=== PATIENT | male | born 1965 | race Caucasian/White ===

== ENCOUNTER → 2021-01-19 | Outpatient (CLI) | payer OTHER ==
--- NOTE | 2021-01-19 13:06 | P.STRESS ---
- Stress Test Note Stress Test Results/Findings: Exam Performed: stress echo exercise Exam Date: 01/19/21 Reason for Exam: FHX OF HEART DISEASE Height: 5 ft 10 in Weight: 86 kg Protocol: STRESS ECHO EXERCISE Stage: 4 Duration of Exercise: 9:18 Resting Heart Rate: 69 Resting Blood Pressure: 116/77 Maximum Achieved Heart Rate: 157 Maximum Achieved Blood Pressure: 159/91 85% PMHR: 139 100% PMHR: 164 METS: 10.5 Technologist Comment: Stress Test Results/Findings: Baseline heart rate 69 beats a minute, Baseline blood pressure 116/77 mmHg Baseline ECG shows sinus rhythm with normal ST segments Patient exercised on a [employer] protocol for 9 minutes 18 seconds, achieving a peak heart rate of 157 beats a minute PVCs were noted peak exercise and in early recovery No nonsustained ventricular tachycardia There was no ECG evidence for ischemia Baseline 2-D echo images showed normal LV size and systolic function without segmental wall motion abnormalities At peak exercise there was excellent augmentation of overall LV contractility without development of any wall motion normalities @Recovery regional global LV systolic function remained normal Impression Good exercise capacity No ECG or echocardiographic evidence for ischemia PVCs at peak exercise
== END | disposition home or self-care (01) ==
LOC: RADNMMAIN 10:25
PROVIDERS: ATTEND Family Medicine
DX: Z82.49 Family history of ischemic heart disease and other diseases of the circulatory system (principal)
CPT/HCPCS: 93351

== ENCOUNTER 2021-01-31 08:51 | Day surgery (SDC) | payer OTHER ==
[2021-01-26 13:27] VITALS: BMI 27.2
[~2021-01-31 08:51] MED LIST: LIDOCAINE 1% (10MG/ML) FOR IV START INTRADERMA PRN
[2021-01-31 09:22] VITALS: TEMP 97.7
[2021-01-31] MEDS: LACTATED RINGERS 1,000 ML IV SCH ×2 (09:22→10:03)
[2021-01-31] MEDS ORDERED: PROPOFOL 10 MG/ML 20 ML VIAL IV ONE (10:04)
[2021-01-31] MEDS ORDERED: SODIUM CHLORIDE 0.9% 500 ML 500 ML IV ONE (10:16)
--- NOTE | 2021-01-31 10:19 | P.PCN ---
Date of Procedure: 01/31/21 Procedure(s) Performed: BRIEF HISTORY: Patient is a 55-year-old pleasant white male scheduled for an elective colonoscopy as a part of evaluation of prior history of colon polyps. Last coloscopy was 5 years ago. PROCEDURE PERFORMED: Colonoscopy. PREOPERATIVE DIAGNOSIS: Of history of colon polyps. IV sedation per Anesthesia. PROCEDURE: After informed consent was obtained, the patient, was brought into the endoscopy unit. IV sedation was administered by Anesthesia under continuous monitoring. Digital rectal examination was normal. Initially the Olympus CF-160 flexible video colonoscope was then inserted in the rectum, gradually advanced into the cecum without any difficulty. Careful examination was performed as the scope was gradually being withdrawn. Ileocecal valve and the appendiceal orifice were visualized and appeared normal. Prep was excellent. Mucosa of the cecum, ascending colon, transverse colon, descending colon, sigmoid colon, and rectum appeared normal. Retroflexion was performed in the rectum and no lesions were seen. The patient tolerated the procedure well. IMPRESSION: Normal-appearing colon from rectum to cecum with no evidence of colorectal neoplasia. RECOMMENDATIONS: Findings of this examination were discussed with the patient as well as his family. He was advised to have a repeat screening colonoscopy in 10 years.
[2021-01-31 11:15] VITALS: BP 116/79; PULSE 77; RESP 20
== END 2021-01-31 11:30 ==
LOC: ORWHC2ENDO 08:51
PROVIDERS: ATTEND Internal Medicine Gastroenterology
DX: Z12.11 Encounter for screening for malignant neoplasm of colon (principal); Z86.010 Personal history of colon polyps; Z87.891 Personal history of nicotine dependence; Z98.890 Other specified postprocedural states; Z97.2 Presence of dental prosthetic device (complete) (partial)
CPT/HCPCS: J2704; G0105; 45378

== ENCOUNTER 2022-09-25 15:26 | Inpatient (IN) | payer BC ==
[2022-09-25] MEDS ORDERED: SODIUM CHLORIDE 0.9% 500 ML 500 ML IV STA (15:46)
[2022-09-25] MEDS ORDERED: DILTIAZEM DRIP BOLUS FROM BAG 1 MG SOLN IV ONE (15:47)
--- NOTE | 2022-09-25 15:49 | ED ---
General Adult HPI - General Chief complaint: Chest Pain Stated complaint: chest pains/sob Time Seen by Provider: 09/25/22 15:40 Source: patient, RN notes reviewed, old records reviewed Mode of arrival: ambulatory Limitations: no limitations - History of Present Illness Initial comments: This is a 57-year-old male who presents emergency Department complaining that he felt short of breath and more fatigued worked also just didn't feel right so decided come the emergency department. Patient states he has no history of any diabetes or high blood pressure high cholesterol. Patient states she used to be a smoker but quit 12 years ago. Patient denies any chest pain today or palpitations. Patient denies any drug use. Patient denies any history of his thyroid. Patient denies headache patient denies numbness weakness. Patient denies lightheadedness or dizziness. Patient denies any abdominal pain patient denies nausea vomiting diarrhea. Patient denies any recent fever chills or cough per patient denies any similar episodes in the past per patient denies any swelling to the legs or calf tenderness. - Related Data Home Medications Medication Instructions Recorded Confirmed Fish Oil(Dose Unknown) 1 cap PO DAILY 01/26/21 09/25/22 Multivitamins, Thera [Multivitamin 1 tab PO DAILY 01/26/21 09/25/22 (formulary)] Vitamin C(Dose Unknown) 1 tab PO DAILY 01/26/21 09/25/22 Vitamin D(Dose Unknown) 1 tab PO DAILY 01/26/21 09/25/22 Allergies Allergy/AdvReac Type Severity Reaction Status Date / Time No Known Allergies Allergy Verified 09/25/22 16:22 Review of Systems ROS Statement: Those systems with pertinent positive or pertinent negative responses have been documented in the HPI. ROS Other: All systems not noted in ROS Statement are negative. Past Medical History Past Medical History: No Reported History History of Any Multi-Drug Resistant Organisms: None Reported Past Surgical History: Orthopedic Surgery Additional Past Surgical History / Comment(s): NASAL SURGERY, RIGHT HAND -TENDON Past Anesthesia/Blood Transfusion Reactions: No Reported Reaction Past Psychological History: No Psychological Hx Reported Smoking Status: Former smoker Past Alcohol Use History: Occasional Past Drug Use History: None Reported - Past Family History Mother Family Medical History: Cancer Additional Family Medical History / Comment(s): BREAST CANCER General Exam - General Exam Comments Initial Comments: GENERAL: Patient is well-developed and well-nourished. Patient is nontoxic and well- hydrated and is in mild distress. ENT: Neck is soft and supple. No significant lymphadenopathy is noted. Oropharynx is clear. Moist mucous membranes. Neck has full range of motion without eliciting any pain. EYES: The sclera were anicteric and conjunctiva were pink and moist. Extraocular movements were intact and pupils were equal round and reactive to light. Eyelids were unremarkable. PULMONARY: Unlabored respirations. Good breath sounds bilaterally. No audible rales rhonchi or wheezing was noted. CARDIOVASCULAR: Patient is tachycardic at about 170 beats a minute ABDOMEN: Soft and nontender with normal bowel sounds. SKIN: Skin is clear with no lesions or rashes and otherwise unremarkable. NEUROLOGIC: Patient is alert and oriented x3. Cranial nerves II through XII are grossly intact. Motor and sensory are also intact. Normal speech, volume and content. Symmetrical smile. MUSCULOSKELETAL: Normal extremities with adequate strength and full range of motion. No lower extremity swelling or edema. No calf tenderness. LYMPHATICS: No significant lymphadenopathy is noted PSYCHIATRIC: Normal psychiatric evaluation. Limitations: no limitations Course Vital Signs 09/25/22 15:29 Temperature 98.5 F Pulse Rate 150 H Respiratory 20 Rate Blood Pressure 105/67 O2 Sat by Pulse 95 Oximetry Medical Decision Making - Medical Decision Making EKG was interpreted by me. EKG shows atrial fibrillation with rapid ventricular response at 151 bpm QRS is 85 Q-T intervals 259 QTC is 345. Patient's EKG showselevation or depression. Chest x-ray was interpreted by me. Chest x-ray showed no infiltrate showed no pleural effusion. I started the patient Cardizem after giving the patient a Cardizem bolus and also started patient on heparin. Patient was not having any chest pain anytime. Patient was not short of breath sounds and was lying still in bed. I spoke with Dr. Pool he accepted the patient admitted the patient wrote admitting orders I consult cardiology I continued heparin and Cardizem on the floor. - Lab Data Result diagrams: 09/25/22 15:52 09/25/22 15:52 Lab Results 09/25/22 09/25/22 09/25/22 Range/Units 15:52 15:52 15:52 WBC 10.1 (3.8-10.6) k/uL RBC 5.23 (4.30-5.90) m/uL Hgb 15.8 (13.0-17.5) gm/dL Hct 44.9 (39.0-53.0) % MCV 86.0 (80.0-100.0) fL MCH 30.1 (25.0-35.0) pg MCHC 35.1 (31.0-37.0) g/dL RDW 12.4 (11.5-15.5) % Plt Count 242 (150-450) k/uL MPV 7.1 Neutrophils % 73 % Lymphocytes % 18 % Monocytes % 7 % Eosinophils % 1 % Basophils % 0 % Neutrophils # 7.3 (1.3-7.7) k/uL Lymphocytes # 1.8 (1.0-4.8) k/uL Monocytes # 0.7 (0-1.0) k/uL Eosinophils # 0.1 (0-0.7) k/uL Basophils # 0.0 (0-0.2) k/uL PT 10.2 (9.0-12.0) sec INR 1.0 (<1.2) APTT 25.8 (22.0-30.0) sec Sodium 140 (137-145) mmol/L Potassium 4.4 (3.5-5.1) mmol/L Chloride 106 (98-107) mmol/L Carbon Dioxide 26 (22-30) mmol/L Anion Gap 8 mmol/L BUN 15 (9-20) mg/dL Creatinine 0.89 (0.66-1.25) mg/dL Est GFR (CKD-EPI)AfAm >90 (>60 ml/min/1.73 sqM) Est GFR (CKD-EPI)NonAf >90 (>60 ml/min/1.73 sqM) Glucose 99 (74-99) mg/dL Calcium 9.3 (8.4-10.2) mg/dL Magnesium 2.1 (1.6-2.3) mg/dL Total Bilirubin 0.6 (0.2-1.3) mg/dL AST 29 (17-59) U/L ALT 28 (4-49) U/L Alkaline Phosphatase 102 (38-126) U/L Troponin I (0.000-0.034) ng/mL Total Protein 7.3 (6.3-8.2) g/dL Albumin 4.5 (3.5-5.0) g/dL 09/25/22 Range/Units 15:52 WBC (3.8-10.6) k/uL RBC (4.30-5.90) m/uL Hgb (13.0-17.5) gm/dL Hct (39.0-53.0) % MCV (80.0-100.0) fL MCH (25.0-35.0) pg MCHC (31.0-37.0) g/dL RDW (11.5-15.5) % Plt Count (150-450) k/uL MPV Neutrophils % % Lymphocytes % % Monocytes % % Eosinophils % % Basophils % % Neutrophils # (1.3-7.7) k/uL Lymphocytes # (1.0-4.8) k/uL Monocytes # (0-1.0) k/uL Eosinophils # (0-0.7) k/uL Basophils # (0-0.2) k/uL PT (9.0-12.0) sec INR (<1.2) APTT (22.0-30.0) sec Sodium (137-145) mmol/L Potassium (3.5-5.1) mmol/L Chloride (98-107) mmol/L Carbon Dioxide (22-30) mmol/L Anion Gap mmol/L BUN (9-20) mg/dL Creatinine (0.66-1.25) mg/dL Est GFR (CKD-EPI)AfAm (>60 ml/min/1.73 sqM) Est GFR (CKD-EPI)NonAf (>60 ml/min/1.73 sqM) Glucose (74-99) mg/dL Calcium (8.4-10.2) mg/dL Magnesium (1.6-2.3) mg/dL Total Bilirubin (0.2-1.3) mg/dL AST (17-59) U/L ALT (4-49) U/L Alkaline Phosphatase (38-126) U/L Troponin I <0.012 (0.000-0.034) ng/mL Total Protein (6.3-8.2) g/dL Albumin (3.5-5.0) g/dL Critical Care Time Critical Care Time: Yes Total Critical Care Time: 35 Disposition Clinical Impression: Atrial fibrillation with rapid ventricular response Disposition: ADMITTED IP TO THIS HOSP Referrals: Malu Cruz MD [Primary Care Provider] - 1-2 days Time of Disposition: 16:38
[2022-09-25 16:06] LABS: Basophils % (A) 0 %; Eosinophils # (A) 0.1 k/uL (0-0.7); Eosinophils % (A) 1 %; HCT 44.9 % (39.0-53.0); HGB 15.8 gm/dL (13.0-17.5); Lymphocytes # (A) 1.8 k/uL (1.0-4.8); Lymphocytes % (A) 18 %; MCH 30.1 pg (25.0-35.0); MCHC 35.1 g/dL (31.0-37.0); Mean Platelet Volume 7.1; Monocytes # (A) 0.7 k/uL (0-1.0); Monocytes % (A) 7 %; Neutrophils # (A) 7.3 k/uL (1.3-7.7); Neutrophils % (A) 73 %; Platelet Count 242 k/uL (150-450); RBC 5.23 m/uL (4.30-5.90); RDW 12.4 % (11.5-15.5); WBC 10.1 k/uL (3.8-10.6)
[2022-09-25 16:15] LABS: ALT 28 U/L (4-49); AST 29 U/L (17-59); African American GFR (CKD) >90 (>60 ml/min/1.73 sqM); Albumin 4.5 g/dL (3.5-5.0); Alkaline Phosphatase 102 U/L (38-126); Anion Gap 8 mmol/L; Blood Urea Nitrogen 15 mg/dL (9-20); Calcium 9.3 mg/dL (8.4-10.2); Carbon Dioxide 26 mmol/L (22-30); Chloride 106 mmol/L (98-107); Glucose 99 mg/dL (74-99); Magnesium 2.1 mg/dL (1.6-2.3); Non-African American GFR(CKD) >90 (>60 ml/min/1.73 sqM); Potassium 4.4 mmol/L (3.5-5.1); Sodium 140 mmol/L (137-145); Total Bilirubin 0.6 mg/dL (0.2-1.3); Total Protein 7.3 g/dL (6.3-8.2)
[2022-09-25] MEDS ORDERED: DILTIAZEM 125 MG in SODIUM CHLORIDE 0.9% 100 ML IV SCH (16:15)
--- NOTE | 2022-09-25 16:17 | XR ---
EXAMINATION TYPE: XR chest 2V DATE OF EXAM: 09/25/2022 COMPARISON: NONE HISTORY: Dysrhythmia. TECHNIQUE: Frontal and lateral views of the chest are obtained. FINDINGS: Slightly elevated left hemidiaphragm. There is no focal air space opacity, pleural effusio n, or pneumothorax seen. The cardiac silhouette size is within normal limits. The osseous structur es are intact. Overlying EKG leads. IMPRESSION: No acute cardiopulmonary process.
[2022-09-25 16:19] LABS: Partial Thromboplastin Time 25.8 sec (22.0-30.0); Prothrombin Time 10.2 sec (9.0-12.0)
[2022-09-25] MEDS ORDERED: HEPARIN SODIUM 1,000 UN/ML (10ML VL) IV ONE (16:35)
[2022-09-25] MEDS ORDERED: NITROGLYCERIN SL TABS 0.4 MG TAB SUBLINGUAL PRN (16:40)
[2022-09-25] MEDS ORDERED: HEPARIN SOD,PORK IN 0.45% NACL 25,000 UNIT in 0.45% NACL 1 250ML.BAG IV SCH (16:45)
[2022-09-25 16:47] LABS: Amphetamine Screen,Urine Not Detected (NotDetected); Barbiturate Screen,Urine Not Detected (NotDetected); Benzodiazepines Screen,Urine Not Detected (NotDetected); Cocaine Screen,Urine Not Detected (NotDetected); Methadone Screen, Urine Not Detected (NotDetected); Opiate Screen,Urine Not Detected (NotDetected); Oxycodone Screen, Urine Not Detected (NotDetected); Phencyclidine Screen,Urine Not Detected (NotDetected); Tricyclic Antidepressant,Urine Not Detected (NotDetected); Urn Cannabinoid Scrn Not Detected (NotDetected)
[2022-09-26 07:15] LABS: Basophils % (A) 0 %; Eosinophils # (A) 0.1 k/uL (0-0.7); Eosinophils % (A) 1 %; HCT 45.9 % (39.0-53.0); HGB 15.5 gm/dL (13.0-17.5); Lymphocytes # (A) 1.8 k/uL (1.0-4.8); Lymphocytes % (A) 25 %; MCH 29.8 pg (25.0-35.0); MCHC 33.7 g/dL (31.0-37.0); MCV 88.3 fL (80.0-100.0); Mean Platelet Volume 7.8; Monocytes # (A) 0.5 k/uL (0-1.0); Monocytes % (A) 7 %; Neutrophils # (A) 4.7 k/uL (1.3-7.7); Neutrophils % (A) 65 %; Platelet Count 215 k/uL (150-450); RBC 5.21 m/uL (4.30-5.90); RDW 12.7 % (11.5-15.5); WBC 7.3 k/uL (3.8-10.6)
[2022-09-26 07:31] LABS: ALT 24 U/L (4-49); AST 23 U/L (17-59); African American GFR (CKD) >90 (>60 ml/min/1.73 sqM); Albumin 3.7 g/dL (3.5-5.0); Alkaline Phosphatase 91 U/L (38-126); Anion Gap 3 mmol/L; Blood Urea Nitrogen 13 mg/dL (9-20); Calcium 8.3 mg/dL (8.4-10.2); Carbon Dioxide 28 mmol/L (22-30); Chloride 107 mmol/L (98-107); Glucose 93 mg/dL (74-99); Non-African American GFR(CKD) >90 (>60 ml/min/1.73 sqM); Potassium 4.5 mmol/L (3.5-5.1); Sodium 138 mmol/L (137-145); Total Bilirubin 1.1 mg/dL (0.2-1.3); Total Protein 6.3 g/dL (6.3-8.2)
[2022-09-26] MEDS ORDERED: ASPIRIN 325 MG TAB PO SCH (09:00)
[2022-09-26] MEDS: MULTIVITAMINS, THERA 1 EACH TAB PO SCH (09:58)
[2022-09-26 10:29] LABS: Chol/HDL Ratio 5.42 Ratio; LDL Cholesterol,Calculated 137.7 mg/dL (0.0-131.0)
--- NOTE | 2022-09-26 12:02 | P.CRDCN ---
History of Present Illness Consult date: 09/26/22 Requesting physician: Oj Pool Reason for Consult (text): new onset af w/RVR Chief complaint: palpitations, shortness of breath History of present illness: This is a pleasant 57-year-old gentleman with no past medical history follows regularly with Dr. Cruz. Yany to the hospital after developing some chest tightness, palpitations shortness of breath at work yesterday. He was found to be in atrial fibrillation with rapid ventricular response. Troponins of been negative 3 and TSH was normal. He's been initiated on IV Cardizem and heparin. On admission CBC and CMP were unremarkable. He continues to be in atrial fibrillation. Overall he is a fairly active person and typically has no pains or limitations. Yany nonsmoker and consumes alcohol only about once a week and does not drink excessive caffeine. He's had no orthopnea, PND or edema. Other than the chest tightness he experienced yesterday he has no complaints of chest discomfort. He's had no dizziness, lightheadedness, syncope or near syncope. He's had no nausea vomiting or diarrhea. He's had no issues with bleeding. Denies any reflux or heartburn. Upon examination he is resting comfortably in the emergency department heart rate is a bit better. He remains in atrial fibrillation. Past Medical History Past Medical History: No Reported History History of Any Multi-Drug Resistant Organisms: None Reported Past Surgical History: Orthopedic Surgery Additional Past Surgical History / Comment(s): NASAL SURGERY, RIGHT HAND -TENDON Past Anesthesia/Blood Transfusion Reactions: No Reported Reaction Past Psychological History: No Psychological Hx Reported Smoking Status: Former smoker Past Alcohol Use History: Occasional Additional Past Alcohol Use History / Comment(s): QUIT SMOKING 2010, STARTED SMOKING AT AGE 17 / 1PPD Past Drug Use History: None Reported - Past Family History Mother Family Medical History: Cancer Additional Family Medical History / Comment(s): BREAST CANCER Medications and Allergies Home Medications Medication Instructions Recorded Confirmed Type Fish Oil(Dose Unknown) 1 cap PO DAILY 01/26/21 09/25/22 History Multivitamins, Thera [Multivitamin 1 tab PO DAILY 01/26/21 09/25/22 History (formulary)] Vitamin C(Dose Unknown) 1 tab PO DAILY 01/26/21 09/25/22 History Vitamin D(Dose Unknown) 1 tab PO DAILY 01/26/21 09/25/22 History Allergies Allergy/AdvReac Type Severity Reaction Status Date / Time No Known Allergies Allergy Verified 09/25/22 16:22 Physical Exam Vitals: Vital Signs Temp Pulse Pulse Resp BP BP Pulse Ox 09/26/22 08:05 97.3 F L 126 H 17 94/68 93 L 09/26/22 08:00 126 H 17 09/26/22 04:23 97.9 F 122 H 16 93/63 95 09/26/22 03:32 98.0 F 106 H 18 91/65 97 09/26/22 02:00 120 H 16 09/25/22 23:27 97.8 F 120 H 16 114/78 98 09/25/22 22:03 116 H 18 95/69 94 L 09/25/22 21:28 126 H 16 109/67 94 L 09/25/22 19:18 130 H 16 108/83 09/25/22 19:00 128 H 13 105/71 09/25/22 18:00 129 H 9 L 108/67 09/25/22 15:29 98.5 F 150 H 20 105/67 95 Intake and Output 09/25/22 09/26/22 09/26/22 22:59 06:59 14:59 Intake Total 15 66.647 126.04 Output Total 500 Balance 15 66.647 -373.96 Intake: Intake, IV Titration 15 66.647 126.04 Amount Diltiazem 125 mg In 15 Sodium Chloride 0.9% 100 ml @ 5 MG/HR 5 mls/hr IV .Q24H [facility] Rx#:[id number] Heparin Sod,Pork in 0.45% 66.647 126.04 NaCl 25,000 unit In 0.45 % NaCl 1 250ml.bag @ 11.6 UNITS/KG/HR 9.997 mls/hr IV .Q24H [facility] Rx#: [id number] Output: Urine 500 Other: Weight 86.183 kg PHYSICAL EXAMINATION: This is a 57-year-old male in no apparent distress at the time of my examination. HEENT: Head is atraumatic, normocephalic. Pupils are equal, round. Sclerae anicteric. Conjunctivae are clear. Mucous membranes of the mouth are moist. Neck is supple. There is no elevated jugular venous pressure. No carotid bruit is heard. CHEST EXAMINATION: Clear to auscultation bilaterally. No wheezes rales or rhonchi. Respirations even and nonlabored. HEART EXAMINATION: Heart irregular rate and rhythm, positive S1 and S2. No S3. No S4. No clicks, rubs or murmurs. ABDOMEN: Soft, nontender. Bowel sounds are heard. No organomegaly noted. EXTREMITIES: 2+ peripheral pulses with no evidence of peripheral edema and no calf tenderness noted. NEUROLOGIC EXAMINATION: Patient is awake, alert and oriented x3. Results 09/26/22 06:31 09/26/22 06:31 Cardiac Enzymes 09/25/22 09/25/22 09/25/22 Range/Units 15:52 15:52 17:43 AST 29 (17-59) U/L Troponin I <0.012 <0.012 (0.000-0.034) ng/mL 09/25/22 09/26/22 Range/Units 21:01 06:31 AST 23 (17-59) U/L Troponin I 0.017 (0.000-0.034) ng/mL Coagulation 09/25/22 09/25/22 09/26/22 Range/Units 15:52 23:28 02:05 PT 10.2 (9.0-12.0) sec APTT 25.8 TUB WASHER 39.1 H (22.0-30.0) sec 09/26/22 Range/Units 06:31 PT (9.0-12.0) sec APTT 38.8 H (22.0-30.0) sec Lipids 09/26/22 Range/Units 06:31 Triglycerides 123.00 (0.00-149.00) mg/dL Cholesterol 199.00 (0.00-200.00) mg/dL HDL Cholesterol 36.70 L (40.00-60.00) mg/dL Cholesterol/HDL Ratio 5.42 Ratio CBC 09/25/22 09/26/22 Range/Units 15:52 06:31 WBC 10.1 7.3 (3.8-10.6) k/uL RBC 5.23 5.21 (4.30-5.90) m/uL Hgb 15.8 15.5 (13.0-17.5) gm/dL Hct 44.9 45.9 (39.0-53.0) % Plt Count 242 215 (150-450) k/uL Comprehensive Metabolic Panel 09/25/22 09/26/22 Range/Units 15:52 06:31 Sodium 140 138 (137-145) mmol/L Potassium 4.4 4.5 (3.5-5.1) mmol/L Chloride 106 107 (98-107) mmol/L Carbon Dioxide 26 28 (22-30) mmol/L BUN 15 13 (9-20) mg/dL Creatinine 0.89 0.76 (0.66-1.25) mg/dL Glucose 99 93 (74-99) mg/dL Calcium 9.3 8.3 L (8.4-10.2) mg/dL AST 29 23 (17-59) U/L ALT 28 24 (4-49) U/L Alkaline Phosphatase 102 91 (38-126) U/L Total Protein 7.3 6.3 (6.3-8.2) g/dL Albumin 4.5 3.7 (3.5-5.0) g/dL Current Medications Generic Name Dose Route Start Last Admin Trade Name Freq PRN Reason Stop Dose Admin Apixaban 5 mg 09/26/22 12:00 Apixaban 5 Mg Tab PO BID [facility] Protocol Metoprolol Tartrate 25 mg 09/26/22 12:00 Metoprolol Tartrate 25 Mg Tab PO BID [facility] Multivitamins 1 each 09/26/22 09:00 09/26/22 09:58 Multivitamins, Thera 1 Each Tab PO 1 each DAILY [facility] Administration Nitroglycerin 0.4 mg 09/25/22 16:40 Nitroglycerin Sl Tabs 0.4 Mg Tab SUBLINGUAL Q5M PRN Chest Pain Intake and Output 09/25/22 09/26/22 09/26/22 22:59 06:59 14:59 Intake Total 15 66.647 126.04 Output Total 500 Balance 15 66.647 -373.96 Intake: Intake, IV Titration 15 66.647 126.04 Amount Diltiazem 125 mg In 15 Sodium Chloride 0.9% 100 ml @ 5 MG/HR 5 mls/hr IV .Q24H [facility] Rx#:[id number] Heparin Sod,Pork in 0.45% 66.647 126.04 NaCl 25,000 unit In 0.45 % NaCl 1 250ml.bag @ 11.6 UNITS/KG/HR 9.997 mls/hr IV .Q24H [facility] Rx#: [id number] Output: Urine 500 Other: Weight 86.183 kg 09/26/22 06:31 09/26/22 06:31 Assessment and Plan Assessment: #1 new onset atrial fibrillation with rapid ventricular response, symptomatic, not previously diagnosed, chads vasc Score is 0 Plan: From cardiology's perspective we will obtain a 2-D echo with Doppler study. We will start the patient on metoprolol and Eliquis. We will stop Cardizem and heparin. If atrial fibrillation persists and we are able to control the heart rate with improvement in the patient's symptoms we'll consider cardioversion as an outpatient. If he remains symptomatic may consider VISH guided cardioversion this admission. We will continue to follow the patient and provide further recommendations accordingly. TUB WASHER note has been reviewed, I agree with a documented findings and plan of care. Patient was seen and examined.
[2022-09-26] MEDS: APIXABAN 5 MG TAB PO SCH ×2 (12:12→21:19)
[2022-09-26] MEDS: METOPROLOL TARTRATE 25 MG TAB PO SCH ×2 (12:12→21:19)
--- NOTE | 2022-09-26 17:33 | P.HPIM ---
History of Present Illness H&P Date: 09/25/22 Domenico Marie, is a 57-year-old male who presented to [facility] emergency room with a chief complaint of fatigue and shortness of breath. He was evaluated in the emergency room vital examination on presentation revealed a temperature of 98.5 pulse 150 respiration 20 blood pressure 105/67 pulse ox 95% on room air Laboratory data revealed a white blood count of 10.1 hemoglobin 15.8 platelet count 242 sodium 140 potassium 4.4 chloride 106 CO2 26 BUN 15 creatinine 0.89 troponin level was less than 0.012 Testing in the emergency room revealed EKG done in the emergency room revealed atrial fibrillation with rapid ventricular response, chest x-ray done in the emergency room revealed no acute cardiopulmonary process. Patient was admitted to medical floor for further evaluation and treatment, he was started on IV heparin and IV Cardizem cardiology consultation was requested Past Medical History Past Medical History: No Reported History History of Any Multi-Drug Resistant Organisms: None Reported Past Surgical History: Orthopedic Surgery Additional Past Surgical History / Comment(s): NASAL SURGERY, RIGHT HAND -TENDON Past Anesthesia/Blood Transfusion Reactions: No Reported Reaction Past Psychological History: No Psychological Hx Reported Smoking Status: Former smoker Past Alcohol Use History: Occasional Past Drug Use History: None Reported - Past Family History Mother Family Medical History: Cancer Additional Family Medical History / Comment(s): BREAST CANCER Medications and Allergies Home Medications Medication Instructions Recorded Confirmed Type Fish Oil(Dose Unknown) 1 cap PO DAILY 01/26/21 09/25/22 History Multivitamins, Thera [Multivitamin 1 tab PO DAILY 01/26/21 09/25/22 History (formulary)] Vitamin C(Dose Unknown) 1 tab PO DAILY 01/26/21 09/25/22 History Vitamin D(Dose Unknown) 1 tab PO DAILY 01/26/21 09/25/22 History Allergies Allergy/AdvReac Type Severity Reaction Status Date / Time No Known Allergies Allergy Verified 09/25/22 16:22 Physical Exam Vitals: Vital Signs Temp Pulse Resp BP Pulse Ox 09/25/22 15:29 98.5 F 150 H 20 105/67 95 Intake and Output 09/25/22 09/25/22 09/25/22 06:59 14:59 22:59 Other: Weight 86.183 kg In general patient is alert and oriented x 3 in no distress HEENT head normocephalic and atraumatic Neck is supple no JVD no goiter no lymphadenopathy no carotid bruit Chest examination is clear to auscultation no crackles no wheezing Cardiac exam reveals irregular heart beat S1 and S2 with tachycardia no gallops no murmurs Abdomen is soft nontender no organomegaly with normal bowel sounds Extremity exam reveals no edema no cyanosis or clubbing Neurological examination reveals no gross focal deficits Results CBC & Chem 7: 09/26/22 06:31 09/26/22 06:31 Assessment and Plan Plan: New onset atrial fibrillation with rapid ventricular response No significant past medical history, no history of hypertension, hypothyroidism, diabetes mellitus or COPD No significant previous cardiac history, no history of coronary artery disease congestive heart failure or any history of valvular heart disease At this time patient will be admitted to telemetry floor He was started on IV Cardizem and IV heparin Cardiology consultation was requested
--- NOTE | 2022-09-26 17:43 | P.PN ---
Subjective Progress Note Date: 09/26/22 Domenico Marie, is a 57-year-old male who presented to [facility] emergency room with a chief complaint of fatigue and shortness of breath. He was evaluated in the emergency room vital examination on presentation revealed a temperature of 98.5 pulse 150 respiration 20 blood pressure 105/67 pulse ox 95% on room air Laboratory data revealed a white blood count of 10.1 hemoglobin 15.8 platelet count 242 sodium 140 potassium 4.4 chloride 106 CO2 26 BUN 15 creatinine 0.89 troponin level was less than 0.012 Testing in the emergency room revealed EKG done in the emergency room revealed a trial fibrillation with rapid ventricular response, chest x-ray done in the emergency room revealed no acute cardiopulmonary process. Patient was admitted to medical floor for further evaluation and treatment, he was started on IV heparin and IV Cardizem cardiology consultation was requested On 09/26/2022 patient was seen and examined on the medical floor he is alert and oriented 3 in no apparent distress there is no fever or chills no headache or dizziness no chest pain no shortness of breath no cough no nausea or vomiting no abdominal pain no diarrhea and no urinary symptoms, he was seen by cardiology and was started on metoprolol 25 mg by mouth twice a day and on Eliquis 5 mg by mouth twice a day, heart rate is still elevated above 100, echocardiogram was ordered but not done yet, will continue to follow closely possible discharge to home tomorrow if stable and echocardiogram is done and is within normal limits. Objective - Vital Signs Vital signs: Vital Signs Temp 98.4 F 09/26/22 16:00 Pulse 104 H 09/26/22 16:00 Resp 17 09/26/22 16:00 BP 86/73 09/26/22 16:00 Pulse Ox 94 L 09/26/22 16:00 FiO2 Intake & Output 09/25/22 09/26/22 09/26/22 18:59 06:59 18:59 Intake Total 81.647 126.04 Output Total 1000 Balance 81.647 -873.96 Weight 86.183 kg 86.183 kg Intake: Intake, IV Titration 81.647 126.04 Amount Diltiazem 125 mg In 15 Sodium Chloride 0.9% 100 ml @ 5 MG/HR 5 mls/hr IV .Q24H [facility] Rx#:[id number] Heparin Sod,Pork in 0.45% 66.647 126.04 NaCl 25,000 unit In 0.45 % NaCl 1 250ml.bag @ 11.6 UNITS/KG/HR 9.997 mls/hr IV .Q24H [facility] Rx#: [id number] Output: Urine 1000 - Exam In general patient is alert and oriented x 3 in no distress HEENT head normocephalic and atraumatic Neck is supple no JVD no goiter no lymphadenopathy no carotid bruit Chest examination is clear to auscultation no crackles no wheezing Cardiac exam reveals irregular heart beat S1 and S2 with tachycardia no gallops no murmurs Abdomen is soft nontender no organomegaly with normal bowel sounds Extremity exam reveals no edema no cyanosis or clubbing Neurological examination reveals no gross focal deficits - Labs CBC & Chem 7: 09/26/22 06:31 09/26/22 06:31 Labs: Abnormal Lab Results - Last 24 Hours (Table) 09/26/22 09/26/22 09/26/22 Range/Units 02:05 06:31 06:31 APTT 39.1 H 38.8 H (22.0-30.0) sec Calcium 8.3 L (8.4-10.2) mg/dL LDL Cholesterol, Calc 137.7 H (0.0-131.0) mg/dL HDL Cholesterol 36.70 L (40.00-60.00) mg/dL
[2022-09-27] MEDS: METOPROLOL TARTRATE 25 MG TAB PO SCH (08:12)
[2022-09-27] MEDS: APIXABAN 5 MG TAB PO SCH ×2 (08:12→20:39)
[2022-09-27] MEDS: MULTIVITAMINS, THERA 1 EACH TAB PO SCH (08:12)
--- NOTE | 2022-09-27 10:55 | P.PN ---
Subjective Progress Note Date: 09/27/22 Domenico Marie, is a 57-year-old male who presented to [facility] emergency room with a chief complaint of fatigue and shortness of breath. He was evaluated in the emergency room vital examination on presentation revealed a temperature of 98.5 pulse 150 respiration 20 blood pressure 105/67 pulse ox 95% on room air Laboratory data revealed a white blood count of 10.1 hemoglobin 15.8 platelet count 242 sodium 140 potassium 4.4 chloride 106 CO2 26 BUN 15 creatinine 0.89 troponin level was less than 0.012 Testing in the emergency room revealed EKG done in the emergency room revealed a trial fibrillation with rapid ventricular response, chest x-ray done in the emergency room revealed no acute cardiopulmonary process. Patient was admitted to medical floor for further evaluation and treatment, he was started on IV heparin and IV Cardizem cardiology consultation was requested On 09/26/2022 patient was seen and examined on the medical floor he is alert and oriented 3 in no apparent distress there is no fever or chills no headache or dizziness no chest pain no shortness of breath no cough no nausea or vomiting no abdominal pain no diarrhea and no urinary symptoms, he was seen by cardiology and was started on metoprolol 25 mg by mouth twice a day and on Eliquis 5 mg by mouth twice a day, heart rate is still elevated above 100, echocardiogram was ordered but not done yet, will continue to follow closely possible discharge to home tomorrow if stable and echocardiogram is done and is within normal limits. On 09/27/2022 patient is alert and oriented 3. Patient reports improvement with chest pressure. Heart rate still elevated in the low 100s. Awaiting 2-D echo to be completed. Patient remains on Lopressor and eliquis. Patient denies chest pain or shortness of breath. Patient denies nausea vomiting or diarrhea. Patient denies any urinary burning or frequency Objective - Vital Signs Vital signs: Vital Signs Temp 98.2 F 09/27/22 08:09 Pulse 114 H 09/27/22 08:09 Resp 16 09/27/22 08:09 BP 95/60 09/27/22 08:09 Pulse Ox 98 09/27/22 04:00 FiO2 Intake & Output 09/26/22 09/27/22 09/27/22 18:59 06:59 18:59 Intake Total 126.04 20 Output Total 1000 Balance -873.96 20 Intake: IV 20 Invasive Line 1 10 Invasive Line 2 10 Intake, IV Titration 126.04 Amount Heparin Sod,Pork in 0.45% 126.04 NaCl 25,000 unit In 0.45 % NaCl 1 250ml.bag @ 11.6 UNITS/KG/HR 9.997 mls/hr IV .Q24H [facility] Rx#: [id number] Output: Urine 1000 Other: Voiding Method Toilet Toilet Toilet Urinal Urinal Urinal # Voids 1 2 - Exam In general patient is alert and oriented x 3 in no distress HEENT head normocephalic and atraumatic Neck is supple no JVD no goiter no lymphadenopathy no carotid bruit Chest examination is clear to auscultation no crackles no wheezing Cardiac exam reveals irregular heart beat S1 and S2 with tachycardia no gallops no murmurs Abdomen is soft nontender no organomegaly with normal bowel sounds Extremity exam reveals no edema no cyanosis or clubbing Neurological examination reveals no gross focal deficits - Labs CBC & Chem 7: 09/26/22 06:31 09/26/22 06:31 Assessment and Plan Plan: New onset atrial fibrillation with rapid ventricular response No significant past medical history, no history of hypertension, hypothyroidism, diabetes mellitus or COPD No significant previous cardiac history, no history of coronary artery disease congestive heart failure or any history of valvular heart disease At this time patient will be admitted to telemetry floor Patient has been transitioned to oral Lopressor and eliquis 2-D echo has been ordered Cardiology consultation was requested
[2022-09-27] MEDS: ATORVASTATIN 40 MG TAB PO SCH (16:28)
[2022-09-27] MEDS: AMIODARONE 200 MG TAB PO SCH (17:17)
--- NOTE | 2022-09-27 17:23 | CA ---
Transthoracic Echo Report Name: Domenico Marie Age: 57 Gender: M : 1965 Exam Date: 09/27/2022 11:13 Exam Location: [place] [facility] Ht (in): 70 Wt (lb): 190 Ordering Physician: Lay Bennett Attending/Referring Phys: [id number], Sabrina Front Desk Coordinator Karley Xie RDCS Procedure CPT: Indications: new onset AF w/RVR Cardiac Hx: Technical Quality: Contrast 1: Total Dose (mL): Contrast 2: Total Dose (mL): MEASUREMENTS (Male / Female) Normal Values 2D ECHO LV Diastolic Diameter PLAX 4.2 cm 4.2 - 5.9 / 3.9 - 5.3 cm LV Systolic Diameter PLAX 3.0 cm IVS Diastolic Thickness 1.1 cm 0.6 - 1.0 / 0.6 - 0.9 cm LVPW Diastolic Thickness 1.4 cm 0.6 - 1.0 / 0.6 - 0.9 cm LV Relative Wall Thickness 0.6 RV Internal Dim ED PLAX 2.5 cm LA Volume 84.9 cm??? 18 - 58 / 22 - 52 cm??? M-MODE Aortic Root Diameter MM 2.8 cm LA Systolic Diameter MM 4.2 cm LA Ao Ratio MM 1.5 AV Cusp Separation MM 1.7 cm DOPPLER AV Peak Velocity 79.1 cm/s AV Peak Gradient 2.5 mmHg LVOT Peak Velocity 81.7 cm/s LVOT Peak Gradient 2.7 mmHg TR Peak Velocity 246.9 cm/s TR Peak Gradient 24.4 mmHg Right Ventricular Systolic Press 28.7 mmHg FINDINGS Left Ventricle Mildly increased left ventricular wall thickness. No obvious regional wall motion abnormalities. Left ventricular ejection fraction is estimated at 50-55 %. Right Ventricle Normal right ventricular size and function. Right ventricular systolic pressure within normal limits. Right Atrium Normal right atrial size. Left Atrium Mildly increased left atrial area. Mitral Valve Structurally normal mitral valve. Mild mitral regurgitation. Aortic Valve No aortic valve stenosis or regurgitation. Tricuspid Valve Structurally normal tricuspid valve. Mild tricuspid regurgitation. Pulmonic Valve Trace pulmonic regurgitation. Pericardium No pericardial effusion. Aorta Normal size aortic root and proximal ascending aorta. CONCLUSIONS Normal LV systolic function Mild mitral and tricuspid regurgitation Previewed by: Dr. Joseph Mcleod MD (Electronically Signed) Final Date: 27 September 2022 17:22
[2022-09-27] MEDS: METOPROLOL TARTRATE 50 MG TAB PO SCH (18:06)
--- NOTE | 2022-09-27 18:36 | P.PN ---
Subjective Progress Note Date: 09/27/22 PROGRESS NOTE The patient is a 57-year-old male with no prior cardiac history who presented with symptoms of chest tightness, palpitations and was noted to be in atrial fibrillation. He continues to be in atrial fibrillation today. His rate continues to be fast at times. He denies any chest discomfort, dizziness or syncope. His echocardiogram showed an ejection fraction of 50-55%. His cardiac enzymes are normal. Medications: Metoprolol 50 mg twice a day,Eliquis 5 mg twice a day PHYSICAL EXAMINATION: Blood pressure 99/60 heart rate 120 LUNGS: Clear to auscultation HEART: Irregular rate and rhythm, S1, S2. No S3. No systolic murmur ABDOMEN: Soft, nontender, no organomegaly EXTREMETIES: No edema LAB: Potassium 4.5, BUN 13, creatinine 0.76, cholesterol 199, LDL 137 IMPRESSION: 1. Atrial fibrillation of unknown duration 2. Hyperlipidemia 3. Symptoms of dyspnea and fatigue related to the atrial fibrillation PLAN: 1. Add amiodarone 2. Add statin 3. If he remains with a rapid ventricular response consider VISH guided cardioversion 4. Depending on his progress further recommendations will be made Objective - Vital Signs Vital signs: Vital Signs Temp 98.4 F 09/27/22 15:30 Pulse 128 H 09/27/22 18:04 Resp 18 09/27/22 15:30 BP 99/66 09/27/22 18:04 Pulse Ox 96 09/27/22 15:30 FiO2 Intake & Output 09/26/22 09/27/22 09/27/22 18:59 06:59 18:59 Intake Total 126.04 20 658 Output Total 1000 Balance -873.96 20 658 Intake: IV 20 Invasive Line 1 10 Invasive Line 2 10 Intake, IV Titration 126.04 Amount Heparin Sod,Pork in 0.45% 126.04 NaCl 25,000 unit In 0.45 % NaCl 1 250ml.bag @ 11.6 UNITS/KG/HR 9.997 mls/hr IV .Q24H [facility] Rx#: [id number] Oral 658 Output: Urine 1000 Other: Voiding Method Toilet Toilet Toilet Urinal Urinal Urinal # Voids 1 2 - Labs CBC & Chem 7: 09/26/22 06:31 09/26/22 06:31
[2022-09-28] MEDS: METOPROLOL TARTRATE 50 MG TAB PO SCH ×2 (08:44→20:13)
[2022-09-28] MEDS: ATORVASTATIN 40 MG TAB PO SCH (08:44)
[2022-09-28] MEDS: MULTIVITAMINS, THERA 1 EACH TAB PO SCH (08:44)
[2022-09-28] MEDS: AMIODARONE 200 MG TAB PO SCH ×2 (08:44→20:12)
[2022-09-28] MEDS: APIXABAN 5 MG TAB PO SCH ×2 (08:44→20:12)
[2022-09-28 10:13] LABS: ALT 23 U/L (4-49); AST 20 U/L (17-59); African American GFR (CKD) >90 (>60 ml/min/1.73 sqM); Albumin 3.5 g/dL (3.5-5.0); Alkaline Phosphatase 76 U/L (38-126); Anion Gap 3 mmol/L; Blood Urea Nitrogen 10 mg/dL (9-20); Calcium 8.3 mg/dL (8.4-10.2); Carbon Dioxide 31 mmol/L (22-30); Chloride 104 mmol/L (98-107); Glucose 99 mg/dL (74-99); Non-African American GFR(CKD) >90 (>60 ml/min/1.73 sqM); Potassium 4.5 mmol/L (3.5-5.1); Sodium 138 mmol/L (137-145); Total Bilirubin 0.6 mg/dL (0.2-1.3)
[2022-09-28 10:14] LABS: Basophils % (A) 0 %; Eosinophils # (A) 0.1 k/uL (0-0.7); Eosinophils % (A) 1 %; HCT 45.1 % (39.0-53.0); HGB 14.8 gm/dL (13.0-17.5); Lymphocytes # (A) 1.2 k/uL (1.0-4.8); Lymphocytes % (A) 19 %; MCHC 32.7 g/dL (31.0-37.0); MCV 88.4 fL (80.0-100.0); Mean Platelet Volume 7.6; Monocytes # (A) 0.3 k/uL (0-1.0); Monocytes % (A) 5 %; Neutrophils # (A) 4.7 k/uL (1.3-7.7); Neutrophils % (A) 73 %; Platelet Count 228 k/uL (150-450); RDW 12.5 % (11.5-15.5); WBC 6.5 k/uL (3.8-10.6)
--- NOTE | 2022-09-28 12:13 | P.PN ---
Subjective Progress Note Date: 09/28/22 PROGRESS NOTE The patient is a 57-year-old male with no prior cardiac history who presented with symptoms of chest tightness, palpitations and was noted to be in atrial fibrillation. He continues to be in atrial fibrillation today. His rate continues to be fast at times. He denies any chest discomfort, dizziness or syncope. His echocardiogram showed an ejection fraction of 50-55%. His cardiac enzymes are normal. September 28: The patient is feeling better but continues to be in atrial fibrillation with episodes of rapid ventricle response. He denies any chest discomfort. He has not been ambulating. He denies any dizziness. His breathing overall is better. His echocardiogram showed an ejection fraction of 50-55% with mild mitral and tricuspid regurgitation Medications: Metoprolol 50 mg twice a day,Eliquis 5 mg twice a day, amiodarone 400 mg twice a day, Lipitor 40 mg daily PHYSICAL EXAMINATION: Blood pressure 96/60 heart rate 110 LUNGS: Clear to auscultation HEART: Irregular rate and rhythm, S1, S2. No S3. No systolic murmur ABDOMEN: Soft, nontender, no organomegaly EXTREMETIES: No edema LAB: Potassium 4.5, BUN 10, creatinine 0.85, hemoglobin 14.8 IMPRESSION: 1. Atrial fibrillation of unknown duration, anticoagulation started at the time of admission 2. Hyperlipidemia 3. Symptoms of dyspnea and fatigue related to the atrial fibrillation, improving PLAN: 1. Increase activity 2. If heart rate is controlled probable discharge home tomorrow otherwise will proceed with VISH guided cardioversion Objective - Vital Signs Vital signs: Vital Signs Temp 97.8 F 09/28/22 08:31 Pulse 113 H 09/28/22 08:31 Resp 18 09/28/22 08:31 BP 96/67 09/28/22 08:31 Pulse Ox 94 L 09/28/22 08:31 FiO2 Intake & Output 09/27/22 09/28/22 09/28/22 18:59 06:59 18:59 Intake Total 658 118 Balance 658 118 Intake: Oral 658 118 Other: Voiding Method Toilet Toilet Toilet Urinal Urinal Urinal # Voids 2 - Labs CBC & Chem 7: 09/28/22 09:06 09/28/22 09:06 Labs: Abnormal Lab Results - Last 24 Hours (Table) 12/17/22 Range/Units 09:06 Carbon Dioxide 31 H (22-30) mmol/L Calcium 8.3 L (8.4-10.2) mg/dL Total Protein 6.0 L (6.3-8.2) g/dL
--- NOTE | 2022-09-28 12:28 | P.PN ---
Subjective Progress Note Date: 09/28/22 Domenico Marie, is a 57-year-old male who presented to [facility] emergency room with a chief complaint of fatigue and shortness of breath. He was evaluated in the emergency room vital examination on presentation revealed a temperature of 98.5 pulse 150 respiration 20 blood pressure 105/67 pulse ox 95% on room air Laboratory data revealed a white blood count of 10.1 hemoglobin 15.8 platelet count 242 sodium 140 potassium 4.4 chloride 106 CO2 26 BUN 15 creatinine 0.89 troponin level was less than 0.012 Testing in the emergency room revealed EKG done in the emergency room revealed a trial fibrillation with rapid ventricular response, chest x-ray done in the emergency room revealed no acute cardiopulmonary process. Patient was admitted to medical floor for further evaluation and treatment, he was started on IV heparin and IV Cardizem cardiology consultation was requested On 09/26/2022 patient was seen and examined on the medical floor he is alert and oriented 3 in no apparent distress there is no fever or chills no headache or dizziness no chest pain no shortness of breath no cough no nausea or vomiting no abdominal pain no diarrhea and no urinary symptoms, he was seen by cardiology and was started on metoprolol 25 mg by mouth twice a day and on Eliquis 5 mg by mouth twice a day, heart rate is still elevated above 100, echocardiogram was ordered but not done yet, will continue to follow closely possible discharge to home tomorrow if stable and echocardiogram is done and is within normal limits. On 09/27/2022 patient is alert and oriented 3. Patient reports improvement with chest pressure. Heart rate still elevated in the low 100s. Awaiting 2-D echo to be completed. Patient remains on Lopressor and eliquis. Patient denies chest pain or shortness of breath. Patient denies nausea vomiting or diarrhea. Patient denies any urinary burning or frequency On 09/28/2022 patient is alert and oriented 3. He is alert and oriented in no distress. Patient reports improvement with chest pressure. Heart rate still elevated at 112. 2-D echo reviewed. Patient remains on Lopressor and Eliquis, Amiodasrone added yesterday. Patient denies chest pain or shortness of breath. Patient denies nausea vomiting or diarrhea. Patient denies any urinary burning or frequency. Objective - Vital Signs Vital signs: Vital Signs Temp 97.8 F 09/28/22 08:31 Pulse 113 H 09/28/22 08:31 Resp 18 09/28/22 08:31 BP 96/67 09/28/22 08:31 Pulse Ox 94 L 09/28/22 08:31 FiO2 Intake & Output 09/27/22 09/28/22 09/28/22 18:59 06:59 18:59 Intake Total 658 118 Balance 658 118 Intake: Oral 658 118 Other: Voiding Method Toilet Toilet Toilet Urinal Urinal Urinal # Voids 2 - Exam In general patient is alert and oriented x 3 in no distress HEENT head normocephalic and atraumatic Neck is supple no JVD no goiter no lymphadenopathy no carotid bruit Chest examination is clear to auscultation no crackles no wheezing Cardiac exam reveals irregular heart beat S1 and S2 with tachycardia no gallops no murmurs Abdomen is soft nontender no organomegaly with normal bowel sounds Extremity exam reveals no edema no cyanosis or clubbing Neurological examination reveals no gross focal deficits - Labs CBC & Chem 7: 09/28/22 09:06 09/28/22 09:06 Labs: Abnormal Lab Results - Last 24 Hours (Table) 09/28/22 Range/Units 09:06 Carbon Dioxide 31 H (22-30) mmol/L Calcium 8.3 L (8.4-10.2) mg/dL Total Protein 6.0 L (6.3-8.2) g/dL Assessment and Plan Plan: New onset atrial fibrillation with rapid ventricular response No significant past medical history, no history of hypertension, hypothyroidism, diabetes mellitus or COPD No significant previous cardiac history, no history of coronary artery disease congestive heart failure or any history of valvular heart disease At this time patient will be admitted to telemetry floor Patient has been transitioned to oral Lopressor and eliquis 2-D echo has been ordered Cardiology consultation was requested
[2022-09-28 21:36] VITALS: TEMP 98
[2022-09-29 09:04] VITALS: BP 106/64; PULSE 65; RESP 18
[2022-09-29] MEDS: AMIODARONE 200 MG TAB PO SCH (09:05)
[2022-09-29] MEDS: ATORVASTATIN 40 MG TAB PO SCH (09:05)
[2022-09-29] MEDS: METOPROLOL TARTRATE 50 MG TAB PO SCH (09:05)
[2022-09-29] MEDS: MULTIVITAMINS, THERA 1 EACH TAB PO SCH (09:05)
[2022-09-29] MEDS: APIXABAN 5 MG TAB PO SCH (09:05)
[2022-09-29 10:06] LABS: Basophils % (A) 0 %; Eosinophils # (A) 0.1 k/uL (0-0.7); Eosinophils % (A) 1 %; HCT 44.7 % (39.0-53.0); HGB 14.9 gm/dL (13.0-17.5); Lymphocytes # (A) 1.2 k/uL (1.0-4.8); Lymphocytes % (A) 19 %; MCH 29.6 pg (25.0-35.0); MCHC 33.4 g/dL (31.0-37.0); MCV 88.5 fL (80.0-100.0); Mean Platelet Volume 7.5; Monocytes # (A) 0.3 k/uL (0-1.0); Monocytes % (A) 5 %; Neutrophils # (A) 4.5 k/uL (1.3-7.7); Neutrophils % (A) 73 %; Platelet Count 222 k/uL (150-450); RBC 5.05 m/uL (4.30-5.90); RDW 12.4 % (11.5-15.5); WBC 6.1 k/uL (3.8-10.6)
[2022-09-29 10:18] LABS: ALT 31 U/L (4-49); AST 23 U/L (17-59); African American GFR (CKD) >90 (>60 ml/min/1.73 sqM); Albumin 3.9 g/dL (3.5-5.0); Alkaline Phosphatase 82 U/L (38-126); Anion Gap 4 mmol/L; Blood Urea Nitrogen 10 mg/dL (9-20); Calcium 8.4 mg/dL (8.4-10.2); Carbon Dioxide 29 mmol/L (22-30); Chloride 104 mmol/L (98-107); Glucose 84 mg/dL (74-99); Non-African American GFR(CKD) >90 (>60 ml/min/1.73 sqM); Potassium 4.9 mmol/L (3.5-5.1); Sodium 137 mmol/L (137-145); Total Bilirubin 0.4 mg/dL (0.2-1.3); Total Protein 6.6 g/dL (6.3-8.2)
--- NOTE | 2022-09-29 10:29 | P.DS ---
Providers Date of admission: 09/25/22 16:40 Expected date of discharge: 09/29/22 Attending physician: Oj Pool Consults: 09/25/22 16:40 Consult Physician Urgent Consulting Provider: [facility] Consult Reason/Comments: A. fib with rapid ventricular response Do you want consulting provider notified?: Yes Primary care physician: Malu Cruz [facility] Course: Discharge summary New onset atrial fibrillation with rapid ventricular response No significant past medical history, no history of hypertension, hypothyroidism, diabetes mellitus or COPD No significant previous cardiac history, no history of coronary artery disease congestive heart failure or any history of valvular heart disease Hospital course Domenico Marie, is a 57-year-old male who presented to [facility] emergency room with a chief complaint of fatigue and shortness of breath. He was evaluated in the emergency room vital examination on presentation revealed a temperature of 98.5 pulse 150 respiration 20 blood pressure 105/67 pulse ox 95% on room air Laboratory data revealed a white blood count of 10.1 hemoglobin 15.8 platelet count 242 sodium 140 potassium 4.4 chloride 106 CO2 26 BUN 15 creatinine 0.89 troponin level was less than 0.012 Testing in the emergency room revealed EKG done in the emergency room revealed atrial fibrillation with rapid ventricular response, chest x-ray done in the emergency room revealed no acute cardiopulmonary process. Patient was admitted to medical floor for further evaluation and treatment, he was started on IV heparin and IV Cardizem cardiology consultation was requested On 09/26/2022 patient was seen and examined on the medical floor he is alert and oriented 3 in no apparent distress there is no fever or chills no headache or dizziness no chest pain no shortness of breath no cough no nausea or vomiting no abdominal pain no diarrhea and no urinary symptoms, he was seen by cardiology and was started on metoprolol 25 mg by mouth twice a day and on Eliquis 5 mg by mouth twice a day, heart rate is still elevated above 100, echocardiogram was ordered but not done yet, will continue to follow closely possible discharge to home tomorrow if stable and echocardiogram is done and is within normal limits. On 09/27/2022 patient is alert and oriented 3. Patient reports improvement with chest pressure. Heart rate still elevated in the low 100s. Awaiting 2-D echo to be completed. Patient remains on Lopressor and eliquis. Patient denies chest pain or shortness of breath. Patient denies nausea vomiting or diarrhea. Patient denies any urinary burning or frequency On 09/28/2022 patient is alert and oriented 3. He is alert and oriented in no distress. Patient reports improvement with chest pressure. Heart rate still elevated at 112. 2-D echo reviewed. Patient remains on Lopressor and Eliquis, Amiodasrone added yesterday. Patient denies chest pain or shortness of breath. Patient denies nausea vomiting or diarrhea. Patient denies any urinary burning or frequency. On 09/29/2022 patient is alert and oriented 3. Patient had converted to sinus rhythm and amiodarone had been administered per cardiology. Discussed case with cardiology service is patient cleared for discharge. Patient will d/c on amiodarone per cardiology continue amiodarone 400 twice a day for 3 days and then to 200 mg twice a day. Per nursing staff patient will receive on for one month of eliquis. Patient will be DC'd on eliquis Lopressor and amiodarone. Patient to follow-up with cardiology services outpatient. At this time patient denies chest pain or shortness of breath. Patient denies nausea vomiting or diarrhea. Patient denies any urinary burning or frequency Patient Condition at Discharge: Stable Plan - Discharge Summary New Discharge Prescriptions: New Amiodarone [Cordarone] 400 mg PO BID 30 Days #70 tab Apixaban [Eliquis] 5 mg PO BID 30 Days #60 tab Atorvastatin [Lipitor] 40 mg PO DAILY 30 Days #30 tab Metoprolol Tartrate [Lopressor] 50 mg PO BID 30 Days #60 tab Continue Vitamin D(Dose Unknown) 1 tab PO DAILY Vitamin C(Dose Unknown) 1 tab PO DAILY Multivitamins, Thera [Multivitamin (formulary)] 1 tab PO DAILY Fish Oil(Dose Unknown) 1 cap PO DAILY Discharge Medication List Fish Oil(Dose Unknown) 1 cap PO DAILY 01/26/21 [History] Multivitamins, Thera [Multivitamin (formulary)] 1 tab PO DAILY 01/26/21 [History] Vitamin C(Dose Unknown) 1 tab PO DAILY 01/26/21 [History] Vitamin D(Dose Unknown) 1 tab PO DAILY 01/26/21 [History] Amiodarone [Cordarone] 400 mg PO BID 30 Days #70 tab 09/29/22 [Rx] Apixaban [Eliquis] 5 mg PO BID 30 Days #60 tab 09/29/22 [Rx] Atorvastatin [Lipitor] 40 mg PO DAILY 30 Days #30 tab 09/29/22 [Rx] Metoprolol Tartrate [Lopressor] 50 mg PO BID 30 Days #60 tab 09/29/22 [Rx] Follow up Appointment(s)/Referral(s): Malu Cruz MD [Primary Care Provider] - 1-2 days Yolanda Mcleod MD [STAFF PHYSICIAN] - 1 Week Activity/Diet/Wound Care/Special Instructions: Activity as tolerated Diet heart healthy Per nursing staff patient will receive coupon for 30 day supply of eliquis will follow up with cardiology services for further management of anticoagulation and amiodarone Discharge Disposition: HOME SELF-CARE
--- NOTE | 2022-09-29 10:50 | P.PN ---
Subjective Progress Note Date: 09/29/22 PROGRESS NOTE The patient is a 57-year-old male with no prior cardiac history who presented with symptoms of chest tightness, palpitations and was noted to be in atrial fibrillation. He continues to be in atrial fibrillation today. His rate continues to be fast at times. He denies any chest discomfort, dizziness or syncope. His echocardiogram showed an ejection fraction of 50-55%. His cardiac enzymes are normal. September 28: The patient is feeling better but continues to be in atrial fibrillation with episodes of rapid ventricle response. He denies any chest discomfort. He has not been ambulating. He denies any dizziness. His breathing overall is better. His echocardiogram showed an ejection fraction of 50-55% with mild mitral and tricuspid regurgitation September 29: The patient is back in sinus mechanism, feels better, denies any chest discomfort, dizziness or palpitations. Ambulating without difficulties. He denies any nausea or vomiting. He converted to sinus mechanism yesterday afternoon. Medications: Metoprolol 50 mg twice a day,Eliquis 5 mg twice a day, amiodarone 400 mg twice a day, Lipitor 40 mg daily PHYSICAL EXAMINATION: Blood pressure 96/60 heart rate 110 LUNGS: Clear to auscultation HEART: Irregular rate and rhythm, S1, S2. No S3. No systolic murmur ABDOMEN: Soft, nontender, no organomegaly EXTREMETIES: No edema LAB: Potassium 4.5, BUN 10, creatinine 0.85, hemoglobin 14.8 IMPRESSION: 1. Atrial fibrillation of unknown duration, anticoagulation started at the time of admission, back in sinus mechanism 2. Hyperlipidemia 3. Symptoms of dyspnea and fatigue related to the atrial fibrillation, improving PLAN: 1. Increase activity 2. Discharge home today 3. Continue amiodarone 400 mg twice a day for 3 more days then 200 mg twice a day 4. Follow-up in the office in 2-3 weeks Objective - Vital Signs Vital signs: Vital Signs Temp 98.0 F 09/28/22 20:00 Pulse 65 09/29/22 09:04 Resp 18 09/29/22 09:04 BP 106/64 09/29/22 09:04 Pulse Ox 95 09/29/22 09:04 FiO2 Intake & Output 09/28/22 09/29/22 09/29/22 18:59 06:59 18:59 Intake Total 478 Balance 478 Intake: Oral 478 Other: Voiding Method Toilet Toilet Toilet Urinal Urinal Urinal # Voids 2 2 - Labs CBC & Chem 7: 09/29/22 09:29 09/29/22 09:29
== END 2022-09-29 11:50 | disposition home or self-care (01) | DRG 310 ==
LOC: EC 15:26 → 3SCARD 16:40
PROVIDERS: ADMIT Internal Medicine; ATTEND Internal Medicine
DX: I48.91 Unspecified atrial fibrillation (principal); F32.A Depression, unspecified; I08.1 Rheumatic disorders of both mitral and tricuspid valves; E78.5 Hyperlipidemia, unspecified; Z87.891 Personal history of nicotine dependence; Z80.3 Family history of malignant neoplasm of breast
CPT/HCPCS: 36415; 71046; 80053; 80061; 80306; 83735; 84443; 84484; 85025; 85610; 85730; 93306; 96365; 96366; 96368; 96375; 96376; 99291